=== PATIENT | male | born 1965 | race Caucasian/White ===

== ENCOUNTER 2019-12-22 17:43 | Emergency (ER) | payer OTHER ==
[2019-12-22] MEDS ORDERED: Lidocaine 1% 30 ML SDV INJECT ONE (18:43)
[2019-12-22] MEDS ORDERED: Diphtheria,Pertussis(Acell),Tetanus Vaccine 0.5 ML Syringe IM ONE (18:59)
--- NOTE | 2019-12-22 19:04 | EDM.PDOC ---
ED HPI GENERAL MEDICAL PROBLEM - General Chief Complaint: Laceration Stated Complaint: LEFT INDEX FINGER Time Seen by Provider: 12/22/19 18:20 Source of Information: Reports: Patient, RN, RN Notes Reviewed History Limitations: Reports: No Limitations - History of Present Illness INITIAL COMMENTS - FREE TEXT/NARRATIVE: Patient presents to the ED via personal vehicle with complaints of a laceration to his left anterior index finger. 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 This accident occurred about one hour ago. He states he has attempted to obtain hemostasis with pressure, but it "...just won't stop bleeding." He denies loss of motor or sensory function to the affected digit. He is not up to date on his tetanus vaccine. - Related Data Allergies Allergy/AdvReac Type Severity Reaction Status Date / Time No Known Allergies Allergy Verified 12/22/19 18:07 Home Meds: Home Meds Sertraline [Zoloft] 100 mg PO DAILY 12/22/19 [History] atorvaSTATin [Lipitor] 20 mg PO BEDTIME 12/22/19 [History] lisinopriL [Lisinopril] 20 mg PO DAILY 12/22/19 [History] Past Medical History HEENT History: Reports: None Cardiovascular History: Reports: High Cholesterol, Hypertension Respiratory History: Reports: None Gastrointestinal History: Reports: None Genitourinary History: Reports: None Musculoskeletal History: Reports: None Neurological History: Reports: None Psychiatric History: Reports: Depression Endocrine/Metabolic History: Reports: None Hematologic History: Reports: None Immunologic History: Reports: None Oncologic (Cancer) History: Reports: None Dermatologic History: Reports: None Social & Family History - Tobacco Use Tobacco Use Status *Q: Current Every Day Tobacco User Years of Tobacco use: 30 Packs/Tins Daily: 1 ED ROS GENERAL - Review of Systems Review Of Systems: Comprehensive ROS is negative, except as noted in HPI. ED EXAM, SKIN/RASH Exam: See Below Exam Limited By: No Limitations General Appearance: Alert, WD/WN, Mild Distress Peripheral Pulses: 2+: Radial (L), Radial (R) Skin: Warm, Dry, Normal Color, No Rash, Wound/Incision (Clean, bleeding laceration to left anterior digit). No: Ecchymosis, Erythema, Increased Warmth, Petechiae Location, Skin: Upper Extremity, Left (Anterior index finger) Associated features: Warmth, Tenderness. No: Swelling, Inflammation ED SKIN PROCEDURES - Laceration/Wound Repair Left Anterior Distal Digit - 2nd (Index) Appearance: Subcutaneous Distal NVT: Neuro & Vascular Intact, No Tendon Injury Anesthetic Type: Local Local Anesthesia - Lidocaine (Xylocaine): 1% Plain Local Anesthetic Volume: 3cc Skin Prep: Chlorhexidine (Hibiciens) Exploration/Debridement/Repair: Wound Explored, In a Bloodless Field, Explored to Base Closed with: Sutures Lac/Wound length In cm: 4 Suture Size: 4-0 # of Sutures: 5 Suture Type: Prolene, Interrupted, Simple Drain Placement: No Sterile Dressing Applied: Nurse Tetanus Status Addressed: Yes Complications: Yes Progress/Comments: Patient to receive TDap at this facility today as he is unsure of his last vaccination. Course - Vital Signs Last Recorded V/S: Last Vital Signs Temp 98.3 F 12/22/19 17:50 Pulse 68 12/22/19 17:50 Resp 16 12/22/19 17:50 BP 122/61 12/22/19 17:50 Pulse Ox 98 12/22/19 17:50 - Orders/Labs/Meds Meds: Medications Discontinued Medications Generic Name Dose Route Start Last Admin Trade Name Freq PRN Reason Stop Dose Admin Diphtheria/Tetanus/Acell Pertussis 0.5 ml 12/22/19 18:59 12/22/19 19:13 Boostrix IM 12/22/19 19:00 0.5 ml .ONCE ONE Administration Lidocaine HCl 30 ml 12/22/19 18:43 12/22/19 18:47 Xylocaine-Mpf 1% INJECT 12/22/19 18:44 30 ml ONETIME ONE Administration - Re-Assessments/Exams Free Text/Narrative Re-Assessment/Exam: 12/22/19 Laceration to left index finger sutured without complication. Tdap administered as patient was unsure of his vaccination status. Wound care discussed, including requiring suture removal at any clinic, in seven days. Patient verbalized understanding and agreement with the plan of care. Departure - Departure Time of Disposition: 19:04 Disposition: Home, Self-Care 01 Condition: Good Clinical Impression: Laceration of left index finger w/o foreign body w/o damage to nail Qualifiers: Encounter type: initial encounter Qualified Code(s): S61.211A - Laceration without foreign body of left index finger without damage to nail, initial encounter - Discharge Information *PRESCRIPTION DRUG MONITORING PROGRAM REVIEWED*: Not Applicable *COPY OF PRESCRIPTION DRUG MONITORING REPORT IN PATIENT ITZ: Not Applicable Instructions: Laceration Care, Adult, [id number] Referrals: PCP,None [Primary Care Provider] - Forms: ED Department Discharge Additional Instructions: You received a Tetanus, Diphtheria, and Acellular Pertussis vaccination today. Follow up at any clinic for the removal of your sutures in 7 days. Keep your finger clean and dry; change your dressing twice a day. Sepsis Event Note (ED) - Evaluation Sepsis Screening Result: No Definite Risk
== END 2019-12-22 19:16 | disposition home or self-care (01) ==
LOC: DL.ED 17:43
DX: S61.211A Laceration without foreign body of left index finger without damage to nail, initial encounter (principal); F17.210 Nicotine dependence, cigarettes, uncomplicated; I10 Essential (primary) hypertension; F32.9 Major depressive disorder, single episode, unspecified; E78.00 Pure hypercholesterolemia, unspecified; Z79.899 Other long term (current) drug therapy; W26.0XXA Contact with knife, initial encounter; Y93.G3 Activity, cooking and baking
CPT/HCPCS: 12002; 90471; 90715; 99282; J2001